=== PATIENT | female | born 1955 | race Caucasian/White ===

== ENCOUNTER 2020-09-08 21:07 | Inpatient (IN) | payer OTHER ==
[2020-09-08 21:55] VITALS: BMI 34.9
[2020-09-08] MEDS ORDERED: NICOTINE POLACRILEX 2 MG GUM BUC PRN (22:09)
[2020-09-08] MEDS ORDERED: MENTHOL/PHENOL 1 EACH UD MM PRN (22:09)
[2020-09-08] MEDS ORDERED: ONDANSETRON *ODT* 4 MG TABLET SL PRN (22:09)
[2020-09-08] MEDS ORDERED: BISMUTH SUBSALICYLATE 524 MG/30 ML UD PO PRN (22:09)
[2020-09-08] MEDS ORDERED: ACETAMINOPHEN 325 MG TABLET (FP) PO PRN (22:09)
[2020-09-08] MEDS ORDERED: IBUPROFEN 400 MG TABLET (FP) PO PRN (22:09)
[2020-09-08] MEDS ORDERED: MAG HYDROX/AL HYDROX/SIMETH 30 ML UNIT-DOSE CUP PO PRN (22:09)
[2020-09-08] MEDS ORDERED: MAGNESIUM CITRATE 300 ML BOTTLE PO PRN (22:09)
[2020-09-08] MEDS ORDERED: MAGNESIUM HYDROX 2400MG/30ML ORAL SUSPENSION 30 ML CUP PO PRN (22:09)
[2020-09-08] MEDS ORDERED: chlordiazePOXIDE HCL 25 MG CAPSULE PO PRN (22:09)
[2020-09-08] MEDS ORDERED: COLLOIDAL OATMEAL 1 BAR EACH TP PRN (22:13)
[2020-09-08] MEDS: chlordiazePOXIDE HCL 25 MG CAPSULE PO SCH (23:44)
[2020-09-09] MEDS: chlordiazePOXIDE HCL 25 MG CAPSULE PO SCH ×5 (06:23→23:16)
[2020-09-09] MEDS: METHOCARBAMOL 500 MG TABLET PO PRN (08:47)
[2020-09-09] MEDS: PRENATAL VITAMINS W/ FOLIC ACID TABLET (FP) PO SCH (10:07)
[2020-09-09] MEDS: NICOTINE 14 MG/24 HOURS TOPICAL PATCH TD SCH (10:07)
[2020-09-09 10:10] LABS: HEMATOCRIT 37.3 % (32.4-45.2); HEMOGLOBIN 12.7 GM/dL (10.7-15.3); MCH 31.8 pg (25.7-33.7); MEAN CELL VOLUME 93.7 fl (80-96); PLATELET COUNT 277 K/MM3 (134-434); RBC 3.98 M/mm3 (3.60-5.2); RDW 14.2 % (11.6-15.6); WHITE BLOOD COUNT 7.5 K/mm3 (4.0-10.0)
[2020-09-09 10:17] LABS: ALBUMIN 3.2 g/dl (3.4-5.0); BILIRUBIN,TOTAL 0.4 mg/dL (0.2-1); BLOOD UREA NITROGEN 14.7 mg/dL (7-18)
[2020-09-09 10:19] LABS: TOT PROT 6.2 g/dl (6.4-8.2)
[2020-09-09] MEDS: ACETAMINOPHEN 325 MG TABLET (FP) PO PRN (18:08)
[2020-09-09] MEDS: AMMONIUM LACTATE 12% LOTION 225 GM BOTTLE TP SCH (21:30)
[2020-09-09] MEDS: MELATONIN 5 MG TABLETS PO SCH (23:16)
[2020-09-09] MEDS: THIAMINE HCL 100 MG TABLET (FP) PO SCH (23:16)
[2020-09-10] MEDS: chlordiazePOXIDE HCL 25 MG CAPSULE PO SCH ×5 (05:41→23:15)
[2020-09-10] MEDS: ACETAMINOPHEN 325 MG TABLET (FP) PO PRN ×2 (07:58→18:38)
[2020-09-10] MEDS: RAMIPRIL 5 MG CAPSULE PO SCH (10:29)
[2020-09-10] MEDS: metoPROLOL SUCCINATE 25 MG TAB.SR.24H (FP) PO SCH (10:29)
[2020-09-10] MEDS: METHOCARBAMOL 500 MG TABLET PO PRN (10:29)
[2020-09-10] MEDS: PRENATAL VITAMINS W/ FOLIC ACID TABLET (FP) PO SCH (10:29)
[2020-09-10] MEDS: NICOTINE 14 MG/24 HOURS TOPICAL PATCH TD SCH (10:29)
[2020-09-10] MEDS: AMMONIUM LACTATE 12% LOTION 225 GM BOTTLE TP SCH ×2 (10:34→23:14)
[2020-09-10] MEDS: DONEPEZIL HCL 5 MG TABLET (FP) PO SCH (16:01)
[2020-09-10] MEDS: MELATONIN 5 MG TABLETS PO SCH (23:14)
[2020-09-10] MEDS: THIAMINE HCL 100 MG TABLET (FP) PO SCH (23:14)
[2020-09-11] MEDS ORDERED: chlordiazePOXIDE HCL 10 MG CAPSULE PO PRN
[2020-09-11] MEDS: chlordiazePOXIDE HCL 10 MG CAPSULE PO SCH ×3 (06:00→17:54)
[2020-09-11] MEDS: ACETAMINOPHEN 325 MG TABLET (FP) PO PRN (06:05)
[2020-09-11 06:06] LABS: SARS-CoV-2 NAA Not Detected (Not Detected)
[2020-09-11] MEDS: DONEPEZIL HCL 5 MG TABLET (FP) PO SCH (10:22)
[2020-09-11] MEDS: NICOTINE 14 MG/24 HOURS TOPICAL PATCH TD SCH (10:22)
[2020-09-11] MEDS: AMMONIUM LACTATE 12% LOTION 225 GM BOTTLE TP SCH (10:22)
[2020-09-11] MEDS: RAMIPRIL 5 MG CAPSULE PO SCH (10:22)
[2020-09-11] MEDS: metoPROLOL SUCCINATE 25 MG TAB.SR.24H (FP) PO SCH (10:22)
[2020-09-11] MEDS: PRENATAL VITAMINS W/ FOLIC ACID TABLET (FP) PO SCH (10:22)
[2020-09-12] MEDS: THIAMINE HCL 100 MG TABLET (FP) PO SCH ×2 (00:05→23:41)
[2020-09-12] MEDS: MELATONIN 5 MG TABLETS PO SCH ×2 (00:05→23:41)
[2020-09-12] MEDS: chlordiazePOXIDE HCL 10 MG CAPSULE PO SCH ×3 (00:05→17:50)
[2020-09-12] MEDS: AMMONIUM LACTATE 12% LOTION 225 GM BOTTLE TP SCH ×3 (00:05→23:41)
[2020-09-12] MEDS: RAMIPRIL 5 MG CAPSULE PO SCH ×2 (10:51→11:00)
[2020-09-12] MEDS: NICOTINE 14 MG/24 HOURS TOPICAL PATCH TD SCH (10:51)
[2020-09-12] MEDS: PRENATAL VITAMINS W/ FOLIC ACID TABLET (FP) PO SCH (10:51)
[2020-09-12] MEDS: DONEPEZIL HCL 5 MG TABLET (FP) PO SCH ×2 (10:51→11:05)
[2020-09-12] MEDS: metoPROLOL SUCCINATE 25 MG TAB.SR.24H (FP) PO SCH (10:52)
[2020-09-13] MEDS: ACETAMINOPHEN 325 MG TABLET (FP) PO PRN (04:12)
[2020-09-13] MEDS ORDERED: chlordiazePOXIDE HCL 10 MG CAPSULE PO ONE (05:00)
[2020-09-13] MEDS: DONEPEZIL HCL 5 MG TABLET (FP) PO SCH (10:12)
[2020-09-13] MEDS: RAMIPRIL 5 MG CAPSULE PO SCH (10:12)
[2020-09-13] MEDS: NICOTINE 14 MG/24 HOURS TOPICAL PATCH TD SCH (10:13)
[2020-09-13] MEDS: PRENATAL VITAMINS W/ FOLIC ACID TABLET (FP) PO SCH (10:13)
[2020-09-13] MEDS: AMMONIUM LACTATE 12% LOTION 225 GM BOTTLE TP SCH (10:13)
[2020-09-13] MEDS: metoPROLOL SUCCINATE 25 MG TAB.SR.24H (FP) PO SCH (10:13)
[2020-09-13 15:10] VITALS: BP 154/76; PULSE 75; TEMP 97
== END 2020-09-13 13:39 | disposition home or self-care (01) | DRG 897 ==
LOC: YASAS 21:07 → Y6N 22:31
PROVIDERS: ADMIT Allergy & Immunology; ATTEND Allergy & Immunology
PROC: HZ2ZZZZ Detoxification Services for Substance Abuse Treatment (ICD-10-PCS; principal; 2020-09-08)
DX: F10.230 Alcohol dependence with withdrawal, uncomplicated (principal); F12.20 Cannabis dependence, uncomplicated; F17.210 Nicotine dependence, cigarettes, uncomplicated; F10.280 Alcohol dependence with alcohol-induced anxiety disorder; F03.90 Unspecified dementia, unspecified severity, without behavioral disturbance, psychotic disturbance, mood disturbance, and anxiety; E78.5 Hyperlipidemia, unspecified; I25.10 Atherosclerotic heart disease of native coronary artery without angina pectoris; I10 Essential (primary) hypertension; Z95.5 Presence of coronary angioplasty implant and graft; I73.9 Peripheral vascular disease, unspecified; M06.9 Rheumatoid arthritis, unspecified; Z62.810 Personal history of physical and sexual abuse in childhood; Z91.410 Personal history of adult physical and sexual abuse
CPT/HCPCS: 36415; 80053; 85027; 86780; 93005; 93010; C9803; U0003; U0005

== ENCOUNTER 2024-07-27 01:06 | Inpatient (IN) | payer OTHER ==
[2024-07-27 01:19] VITALS: BMI 35.7
[2024-07-27 01:38] LABS: BASO % 0.3 % (0-2.0); EOS % 0.3 % (0-4.5); HEMATOCRIT 39.3 % (32.4-45.2); HEMOGLOBIN 13.7 GM/dL (10.7-15.3); LYMPH % 10.8 % (8-40); MCH 31.4 pg (25.7-33.7); MCHC 34.8 g/dl (32.0-36.0); MEAN CELL VOLUME 90.2 fl (80-96); MEAN PLT VOLUME 7.5 fl (7.5-11.1); MONO % 4.5 % (3.8-10.2); NEUT % 84.1 % (42.8-82.8); PLATELET COUNT 252 10^3/uL (134-434); RBC 4.35 M/mm3 (3.60-5.2); RDW 14.3 % (11.6-15.6); WHITE BLOOD COUNT 9.6 K/mm3 (4.0-10.0)
[2024-07-27 01:50] LABS: INR 1.03 (0.83-1.09); PROTHROMBIN TIME (PATIENT) 11.3 SEC (9.7-13.0)
[2024-07-27 01:53] LABS: ACTIVATED PTT 35.6 SECONDS (25.2-36.5)
[2024-07-27 03:02] LABS: POTASSIUM 4.4 mmol/L (3.5-5.1)
[2024-07-27 03:04] LABS: CALCIUM 9.8 mg/dL (8.5-10.1)
[2024-07-27 03:05] LABS: ALBUMIN 3.6 g/dl (3.4-5.0); BLOOD UREA NITROGEN 25.9 mg/dL (7-18); MAGNESIUM 2.1 mg/dL (1.8-2.4)
[2024-07-27 03:08] LABS: CREATININE 1.2 mg/dL (0.55-1.3)
[2024-07-27 03:09] LABS: BILIRUBIN,TOTAL 0.5 mg/dL (0.2-1); TOT PROT 7.5 g/dl (6.4-8.2)
[2024-07-27] MEDS ORDERED: ACETAMINOPHEN INJECTION 100 ML ONE (03:31)
[2024-07-27] MEDS ORDERED: ONDANSETRON 4 MG/2 ML VIAL ONE (03:31)
[2024-07-27] MEDS: SODIUM CHLORIDE 1,000 ML IV STA (03:37)
[2024-07-27] MEDS: ONDANSETRON 4 MG/2 ML VIAL IVPUSH ONE (03:37)
[2024-07-27] MEDS: ACETAMINOPHEN 1000 MG/100 ML BAG IVPB ONE (03:37)
[2024-07-27] MEDS ORDERED: PIPERACILLIN/TAZOB 4.5 GM 4.5 GM/100 ML BAG IVPB ONE (05:08)
[2024-07-27] MEDS: PIPERACILLIN/TAZOB 4.5 GM 4.5 GM in DEXTROSE 5%-WATER 100 ML IVPB ONE (05:11)
[2024-07-27] MEDS: SODIUM CHLORIDE 1,000 ML IV SCH (09:05)
[2024-07-27] MEDS: THIAMINE 100 MG TABLET PO SCH (09:44)
[2024-07-27] MEDS: PARoxetine HCL 10 MG TABLET PO SCH (09:44)
[2024-07-27] MEDS: metoPROLOL SUCCINATE 25 MG TAB.SR.24H (FP) PO SCH (09:44)
[2024-07-27] MEDS: RAMIPRIL 5 MG CAPSULE PO SCH (09:44)
[2024-07-27] MEDS: PIPERACILLIN/TAZOB 3.375 GM 50 ML IVPB SCH (12:16)
[2024-07-27] MEDS: PIPERACILLIN/TAZOB 3.375 GM 3.375 GM in DEXTROSE 5%-WATER - 50 ML IVPB SCH (13:00)
[2024-07-27] MEDS: CEFTRIAXONE 1 G/50 ML PREMIX 50 ML IVPB SCH (18:01)
[2024-07-27] MEDS ORDERED: HEPARIN NA (PORCINE) 5,000 UNITS/ML 1ML VIAL IVPUSH SCH (22:00)
[2024-07-27] MEDS ORDERED: MELATONIN 5 MG TABLETS PO SCH (22:00)
[2024-07-27] MEDS ORDERED: DONEPEZIL HCL 5 MG TABLET (FP) PO SCH (22:00)
[2024-07-27] MEDS: HEPARIN NA (PORCINE) 5,000 UNITS/ML 1ML VIAL SQ SCH (22:18)
[2024-07-28] MEDS: metoPROLOL SUCCINATE 25 MG TAB.SR.24H (FP) PO SCH (09:05)
[2024-07-28 09:24] LABS: BASO % 0.7 % (0-2.0); EOS % 3.7 % (0-4.5); HEMATOCRIT 36.3 % (32.4-45.2); HEMOGLOBIN 12.6 GM/dL (10.7-15.3); MCH 31.9 pg (25.7-33.7); MCHC 34.6 g/dl (32.0-36.0); MEAN CELL VOLUME 92.2 fl (80-96); MEAN PLT VOLUME 7.9 fl (7.5-11.1); MONO % 7.3 % (3.8-10.2); NEUT % 69.3 % (42.8-82.8); PLATELET COUNT 228 10^3/uL (134-434); RBC 3.94 M/mm3 (3.60-5.2); RDW 14.4 % (11.6-15.6); WHITE BLOOD COUNT 5.7 K/mm3 (4.0-10.0)
[2024-07-28 09:50] LABS: ALBUMIN 3.1 g/dl (3.4-5.0); BLOOD UREA NITROGEN 15.7 mg/dL (7-18); CREATININE 1.1 mg/dL (0.55-1.3); PHOSPHOROUS 2.9 mg/dL (2.5-4.9)
[2024-07-28 09:51] LABS: BILIRUBIN,TOTAL 0.4 mg/dL (0.2-1); TOT PROT 6.5 g/dl (6.4-8.2)
[2024-07-28 09:52] LABS: CALCIUM 9.8 mg/dL (8.5-10.1)
[2024-07-28 09:53] LABS: MAGNESIUM 2.3 mg/dL (1.8-2.4)
[2024-07-28] MEDS ORDERED: DEXAMETHASONE SOD PHOSPHATE 4 MG/1 ML VIAL ONE (12:21)
[2024-07-28] MEDS ORDERED: ONDANSETRON 4 MG/2 ML VIAL ONE (12:21)
[2024-07-28] MEDS ORDERED: LIDOCAINE HCL/PF 2% SDV 5ML VIAL ONE (12:21)
[2024-07-28] MEDS ORDERED: KETOROLAC TROMETHAMINE 30 MG/1 ML VIAL ONE (12:21)
[2024-07-28] MEDS ORDERED: PROPOFOL 40 ML ONE (12:21)
[2024-07-28] MEDS ORDERED: MIDAZOLAM HCL 2 MG/2 ML SINGLE DOSE VIAL ONE (12:22)
[2024-07-28] MEDS ORDERED: ACETAMINOPHEN INJECTION 100 ML ONE (14:04)
[2024-07-28 16:55] LABS: ALBUMIN 3.7 g/dl (3.4-5.0); BILIRUBIN,TOTAL 0.5 mg/dL (0.2-1); BLOOD UREA NITROGEN 24.6 mg/dL (7-18); CALCIUM 9.8 mg/dL (8.5-10.1); CREATININE 1.2 mg/dL (0.55-1.3); MAGNESIUM 2.6 mg/dL (1.8-2.4); POTASSIUM 4.3 mmol/L (3.5-5.1); TOT PROT 7.8 g/dl (6.4-8.2)
[2024-07-28] MEDS: cefTRIAXone SODIUM 1 GM VIAL IVPB ONE (17:19)
[2024-07-28] MEDS: QUEtiapine FUMARATE 25 MG TABLET PO ONE (17:21)
[2024-07-28] MEDS ORDERED: ROCURONIUM BROMIDE 50 MG/5 ML SYRINGE ONE (17:25)
[2024-07-28] MEDS ORDERED: GLYCOPYRROLATE 0.2 MG/1 ML VIAL ONE (17:29)
[2024-07-28] MEDS ORDERED: BUPIVACAINE HCL/PF 0.25% (2.5MG/ML) 10 ML VIAL ONE (17:35)
[2024-07-28] MEDS: BUPIVACAINE HCL/PF 0.25% (2.5MG/ML) 10 ML VIAL IJ ONE (17:44)
[2024-07-28] MEDS ORDERED: SUGAMMADEX SODIUM 200 MG/2 ML VIAL ONE (18:41)
[2024-07-28] MEDS ORDERED: LACTATED RINGERS SOLUTION 1,000 ML IV SCH (19:15)
[2024-07-28] MEDS ORDERED: oxyCODONE HCL 5 MG TABLET PO PRN (19:32)
[2024-07-28] MEDS: LACTATED RINGERS SOLUTION 1,000 ML IV SCH (20:24)
[2024-07-28] MEDS: HEPARIN NA (PORCINE) 5,000 UNITS/ML 1ML VIAL SQ SCH (21:16)
[2024-07-28] MEDS: SODIUM CHLORIDE 1,000 ML IV SCH (21:19)
[2024-07-29] MEDS: ACETAMINOPHEN 1000 MG/100 ML BAG IVPB SCH (00:08)
[2024-07-29] MEDS ORDERED: KETOROLAC TROMETHAMINE 15 MG/ML VIAL IVPUSH PRN (01:00)
[2024-07-29] MEDS: amLODIPine BESYLATE 2.5 MG TABLET (FP) PO SCH (09:12)
[2024-07-29] MEDS: DOCUSATE SODIUM 100 MG CAPSULE (FP) PO SCH (09:12)
[2024-07-29] MEDS: metoPROLOL SUCCINATE 25 MG TAB.SR.24H (FP) PO SCH (09:55)
[2024-07-29 10:15] LABS: HEMATOCRIT 36.5 % (32.4-45.2); HEMOGLOBIN 12.7 GM/dL (10.7-15.3); MCH 32.5 pg (25.7-33.7); MCHC 34.9 g/dl (32.0-36.0); MEAN CELL VOLUME 93.1 fl (80-96); MEAN PLT VOLUME 7.7 fl (7.5-11.1); PLATELET COUNT 260 10^3/uL (134-434); RBC 3.91 M/mm3 (3.60-5.2); WHITE BLOOD COUNT 8.1 K/mm3 (4.0-10.0)
[2024-07-29 10:29] LABS: POTASSIUM 4.2 mmol/L (3.5-5.1)
[2024-07-29 10:39] LABS: BLOOD UREA NITROGEN 18.2 mg/dL (7-18)
[2024-07-29 10:42] LABS: CREATININE 1.1 mg/dL (0.55-1.3); PHOSPHOROUS 2.9 mg/dL (2.5-4.9)
[2024-07-29 10:44] LABS: TOT PROT 6.4 g/dl (6.4-8.2)
[2024-07-29] MEDS: ASPIRIN COATED 81 MG TABLET.EC PO SCH (14:54)
[2024-07-29 16:02] LABS: POTASSIUM 3.8 mmol/L (3.5-5.1)
[2024-07-29 16:03] LABS: CALCIUM 9.1 mg/dL (8.5-10.1)
[2024-07-29 16:06] LABS: BLOOD UREA NITROGEN 19.9 mg/dL (7-18)
[2024-07-29 16:07] LABS: CREATININE 1.3 mg/dL (0.55-1.3)
[2024-07-29] MEDS: AMOX TR/POT CLAV 500MG/125MG TABLETS (FP) PO SCH (16:43)
[2024-07-29] MEDS ORDERED: CEFTRIAXONE 1 G/50 ML PREMIX 50 ML IVPB SCH (17:45)
[2024-07-29] MEDS: GABAPENTIN 300 MG CAPSULE PO SCH (21:12)
[2024-07-30] MEDS: oxyCODONE HCL 5 MG TABLET PO PRN (09:29)
[2024-07-30 09:48] LABS: ALBUMIN 3.3 g/dl (3.4-5.0); BLOOD UREA NITROGEN 17.7 mg/dL (7-18); CALCIUM 9.7 mg/dL (8.5-10.1)
[2024-07-30 09:51] LABS: BILIRUBIN,DIRECT 0.2 mg/dL (0.0-0.2); BILIRUBIN,TOTAL 0.4 mg/dL (0.2-1); CREATININE 1.3 mg/dL (0.55-1.3)
[2024-07-30 10:30] VITALS: TEMP 97.2
[2024-07-30 10:44] VITALS: BP 131/80; PULSE 54; RESP 16
== END 2024-07-30 11:56 | DRG 418 ==
LOC: JER 01:06 → JERBED 04:56 → OBSVTOIN 05:49 → J6S 07:29
PROVIDERS: ADMIT Internal Medicine; ATTEND Internal Medicine
PROC: 0DNW4ZZ Release Peritoneum, Percutaneous Endoscopic Approach (ICD-10-PCS; 2024-07-28)
PROC: 0FT44ZZ Resection of Gallbladder, Percutaneous Endoscopic Approach (ICD-10-PCS; principal; 2024-07-28 17:00)
DX: K81.2 Acute cholecystitis with chronic cholecystitis (principal); K82.1 Hydrops of gallbladder; G30.9 Alzheimer's disease, unspecified; F02.80 Dementia in other diseases classified elsewhere, unspecified severity, without behavioral disturbance, psychotic disturbance, mood disturbance, and anxiety; I25.10 Atherosclerotic heart disease of native coronary artery without angina pectoris; I12.9 Hypertensive chronic kidney disease with stage 1 through stage 4 chronic kidney disease, or unspecified chronic kidney disease; N18.9 Chronic kidney disease, unspecified; M06.9 Rheumatoid arthritis, unspecified
CPT/HCPCS: 36415; 74176-TC; 76705-TC; 80048; 80053; 80076; 83036; 83605; 83690; 83735; 84100; 84439; 84443; 84484; 85025; 85027; 85610; 85730; 86850; 86900; 86901; 87635; 88304-TC; 93005; 93010; 94760; 97116-GP; 97162-GP; 99285-25; G0378; J0131; J1644

== ENCOUNTER 2024-10-03 00:57 | Emergency (ER) | payer OTHER ==
[2024-10-03] MEDS ORDERED: ACETAMINOPHEN 325 MG TABLET (FP) ONE (01:29)
[2024-10-03 01:32] VITALS: BMI 63.6
[2024-10-03] MEDS: ACETAMINOPHEN 500 MG TABLET (FP) PO ONE (01:37)
[2024-10-03 05:24] VITALS: BP 130/53; PULSE 56; TEMP 97.6
== END 2024-10-03 05:30 ==
LOC: JER 00:57
DX: M25.521 Pain in right elbow (principal); M25.551 Pain in right hip; Z89.511 Acquired absence of right leg below knee; Y04.8XXA Assault by other bodily force, initial encounter; Y92.129 Unspecified place in nursing home as the place of occurrence of the external cause
CPT/HCPCS: 70450-TC; 72125-TC; 73070-TC-RT-FY; 73502-TC-RT-FY; 99284-25

== ENCOUNTER 2024-11-18 19:04 | Emergency (ER) | payer OTHER ==
[2024-11-18 19:21] VITALS: TEMP 97.6; BMI 30.4
[2024-11-18 21:01] LABS: MCHC 32.3 g/dl (32.2-35.5); MEAN CELL VOLUME 92.9 fl (79.4-94.8); MEAN PLT VOLUME 9.5 fl (9.4-12.3); RDW 12.9 % (12.4-16.4)
[2024-11-18 21:29] LABS: CO2 27.0 mmol/L (21-32)
[2024-11-18 21:30] LABS: GLUCOSE,RANDOM 104.0 mg/dL (74-106)
[2024-11-18 21:32] LABS: SGOT/AST 43.0 U/L (15-37); SGPT/ALT 20.0 U/L (13-61)
[2024-11-18 21:33] LABS: CREATININE 1.4 mg/dL (0.55-1.3)
[2024-11-18 21:34] LABS: TOT PROT 7.4 g/dl (6.4-8.2)
[2024-11-18 21:35] LABS: ALK PHOS 124.0 U/L (45-117)
[2024-11-18] MEDS: SODIUM CHLORIDE 0.9% 500 ML INFUS.BAG IV ONE (22:15)
[2024-11-18 22:19] LABS: HCV DIAGNOSTIC IN-HOUSE W/RFLX NON-REACTIVE (NONREACTIVE)
[2024-11-18 22:55] LABS: HIV INTERPRETATION NEGATIVE (NEGATIVE)
[2024-11-19 00:42] LABS: CO2 26.0 mmol/L (21-32); GLUCOSE,RANDOM 109.0 mg/dL (74-106)
[2024-11-19 00:46] LABS: CREATININE 1.1 mg/dL (0.55-1.3)
[2024-11-19 05:24] VITALS: BP 149/71; PULSE 69; RESP 19
== END 2024-11-19 05:14 ==
LOC: JER 19:04
PROC: 3E0337Z Introduction of Electrolytic and Water Balance Substance into Peripheral Vein, Percutaneous Approach (ICD-10-PCS; principal; 2024-11-18)
DX: R07.9 Chest pain, unspecified (principal)
CPT/HCPCS: 36415; 71045-TC-FY; 80048; 80053; 83735; 84484; 85027; 86803; 87389; 87637-QW; 93005; 93010; 99285-25